=== PATIENT | female | born 1990 | race African-American/Black ===

== ENCOUNTER 2016-07-26 10:32 | Emergency (ER) | payer OTHER ==
[~2016-07-26] VITALS: Ht 162.6 cm; Wt 68.5 kg
[2016-07-26 10:32] VITALS: BP 134/65
[2016-07-26] MEDS ORDERED: ZOFR4TAB3 PO (11:58)
[2016-07-26] MEDS ORDERED: ACETAMINOPHEN 325 MG TAB PO ONE (12:00)
[2016-07-26] MEDS ORDERED: ONDANSETRON 4 MG ORAL DISINTEGRATING TAB (S0181) PO ONE (12:00)
== END 2016-07-26 12:06 | disposition home or self-care (01) ==
LOC: M ED 11:41
DX: J02.9 Acute pharyngitis, unspecified (principal)

== ENCOUNTER 2016-10-03 11:31 | Emergency (ER) | payer OTHER ==
[~2016-10-03] VITALS: Ht 162.6 cm; Wt 64.9 kg
[~2016-10-03 11:31] MED LIST: ZOFR4TAB3 PO
[2016-10-03 12:47] LABS: BASO % 0.3 % (0.0-1.0); EOS # 0.1 K/mm3 (0.0-0.50); EOS % 1.2 % (0.0-3.0); LARGE UNSTAINED CELL # 0.1 K/mm3 (0.0-0.4); LYMPH % 40.8 % (24.0-44.0); MEAN CORPUSCULAR HEMOGLOBIN 25.7 pg (27.0-33.0); MEAN CORPUSCULAR HGB CONC 31.3 g/dl (32.0-36.5); MEAN CORPUSCULAR VOLUME 82.3 fl (80.0-96.0); MONO # 0.3 K/mm3 (0.0-0.8); MONO % 5.9 % (0.0-5.0); NEUTROPHILS # 2.3 K/mm3 (1.8-7.7); NEUTROPHILS % 48.8 % (36.0-66.0); PLATELET COUNT, AUTOMATED 210 k/mm3 (150-450); RED CELL DISTRIBUTION WIDTH 13.6 % (11.5-14.5); WHITE BLOOD COUNT 4.7 K/mm3 (4.0-10.0)
[2016-10-03 14:12] VITALS: BP 156/70
== END 2016-10-03 14:15 | disposition home or self-care (01) ==
LOC: M ED 12:22
DX: O20.8 Other hemorrhage in early pregnancy (principal); Z90.89 Acquired absence of other organs; Z3A.01 Less than 8 weeks gestation of pregnancy

== ENCOUNTER 2016-11-18 07:03 | Emergency (ER) | payer OTHER ==
[~2016-11-18] VITALS: Ht 162.6 cm; Wt 69.0 kg
[2016-11-18] MEDS ORDERED: PRENCHW PO (07:12)
[2016-11-18] MEDS ORDERED: NS 1,000 ML IV ONE (07:45)
[2016-11-18] MEDS ORDERED: METOCLOPRAMIDE INJ 10MG/2ML VIAL (J2765) IV ONE (07:45)
[2016-11-18] MEDS ORDERED: diphenhydrAMINE INJ 50MG/ML VIAL (J1200) IV ONE (07:45)
[2016-11-18 08:26] LABS: BASO % 0.1 % (0.0-1.0); EOS % 0.3 % (0.0-3.0); LARGE UNSTAINED CELL # 0.1 K/mm3 (0.0-0.4); LARGE UNSTAINED CELL % 1.9 % (0.0-4.0); LYMPH # 1.5 K/mm3 (1.5-6.5); LYMPH % 24.3 % (24.0-44.0); MEAN CORPUSCULAR HEMOGLOBIN 26.1 pg (27.0-33.0); MEAN CORPUSCULAR HGB CONC 32.1 g/dl (32.0-36.5); MEAN CORPUSCULAR VOLUME 81.3 fl (80.0-96.0); MONO # 0.3 K/mm3 (0.0-0.8); MONO % 5.3 % (0.0-5.0); NEUTROPHILS # 3.9 K/mm3 (1.8-7.7); PLATELET COUNT, AUTOMATED 171 k/mm3 (150-450); RED CELL DISTRIBUTION WIDTH 13.6 % (11.5-14.5); WHITE BLOOD COUNT 5.8 K/mm3 (4.0-10.0)
[2016-11-18 09:15] LABS: ALBUMIN 3.2 GM/DL (3.2-5.2); ALBUMIN/GLOBULIN RATIO 0.76 (1.00-1.93); ALKALINE PHOSPHATASE 136 U/L (45-117); ALT/SGPT 24 U/L (12-78); AMYLASE 65 U/L (25-115); ANION GAP 9 MEQ/L (8-16); AST/SGOT 11 U/L (15-37); BILIRUBIN,DIRECT < 0.1 MG/DL (0.0-0.2); BILIRUBIN,TOTAL 0.3 MG/DL (0.2-1.0); BLOOD UREA NITROGEN 7 MG/DL (7-18); CALCIUM LEVEL 9.4 MG/DL (8.5-10.1); CARBON DIOXIDE LEVEL 24 MEQ/L (21-32); CHLORIDE LEVEL 101 MEQ/L (98-107); CREATININE FOR GFR 0.28 MG/DL (0.55-1.02); GLOMERULAR FILTRATION RATE > 60.0 (>60); GLUCOSE, FASTING 95 MG/DL (70-105); HCG, SERUM QUANTITATIVE 44218 MIU/ML; POTASSIUM SERUM 3.5 MEQ/L (3.5-5.1); SODIUM LEVEL 134 MEQ/L (136-145); TOTAL PROTEIN 7.4 GM/DL (6.4-8.2)
--- NOTE | 2016-11-18 09:23 | REP ---
First trimester obstetrical ultrasound, emergency room request for pelvic pain: There are no comparisons. The study is performed with transabdominal and Doppler imaging: The bladder is poorly distended. There is an intrauterine gestational sac with a pole. The heart rate is 169 beats per minute. The pole crown-rump length is 4.3 cm correspond to 11 weeks 1 day gestational age. The RICHARD is 06/08/2017. There is a yolk sac that is borderline enlarged measuring 5.1 mm. There is no subchorionic hematoma. The maternal adnexa and cul-de-sac are unremarkable. The Doppler resistive index of the intraparenchymal arteries in the right ovary is 0.59 indicating there is vascular flow in the right ovary. There is no ultrasound assessment of the left ovary for reasons known to this examiner. Signed by Hudson Calloway MD 11/18/2016 09:14 A
[2016-11-18] MEDS ORDERED: REGL10TA6 PO (09:52)
[2016-11-18 10:09] VITALS: BP 123/54
== END 2016-11-18 10:10 | disposition home or self-care (01) ==
LOC: M ED 07:03
DX: O99.89 Other specified diseases and conditions complicating pregnancy, childbirth and the puerperium (principal); E86.0 Dehydration; R10.84 Generalized abdominal pain; R11.2 Nausea with vomiting, unspecified; R19.7 Diarrhea, unspecified; Z3A.11 11 weeks gestation of pregnancy; Z79.899 Other long term (current) drug therapy
CPT/HCPCS: 76801; 80048; 80076; 81001; 82150; 83690; 84702; 85025; 87086; 96361; 96374; 96375; 99283; J1200; J2765

== ENCOUNTER 2016-12-14 17:09 | Emergency (ER) | payer OTHER ==
[~2016-12-14] VITALS: Ht 162.6 cm; Wt 65.0 kg
[~2016-12-14 17:09] MED LIST changes: +PRENCHW PO; +REGL10TA6 PO
[2016-12-14] MEDS ORDERED: VITA50TA43 PO (17:21)
[2016-12-14] MEDS ORDERED: UNIS25TA2 PO (17:21)
[2016-12-14 18:39] LABS: MEAN CORPUSCULAR HEMOGLOBIN 26.4 pg (27.0-33.0); MEAN CORPUSCULAR HGB CONC 32.2 g/dl (32.0-36.5); MEAN CORPUSCULAR VOLUME 82.2 fl (80.0-96.0); RED CELL DISTRIBUTION WIDTH 13.6 % (11.5-14.5); WHITE BLOOD COUNT 7.9 K/mm3 (4.0-10.0)
[2016-12-14] MEDS ORDERED: ONDANSETRON 4 MG ORAL DISINTEGRATING TAB (S0181) PO ONE (18:45)
--- NOTE | 2016-12-14 20:40 | REPUSA ---
CLINICAL HISTORY: Abdominal pain. TECHNIQUE: Realtime sonographic images were obtained in multiple projections. COMMENTS: There is a single intrauterine gestation, variable position presentation. The biparietal diameter measures 3.1 cm. This corresponds to a gestational age of 15 weeks 5 days. The abdominal circumference and femur length measure 8.7 cm and 1.8 cm, respectively, and are relati vely proportionate to the BPD. The HC-AC ratio is normal. The composite age is 15 weeks and 2 days. Estimated weight based on BPD and AC is 116 grams. heart motion was observed. The heart rate is 160 beats per minute. The placenta is left lateral free of the cervical os. The amniotic fluid volume is normal. The cervical length is 3.7 cm. IMPRESSION: 1. Single, live, intrauterine gestation with a composite gestational age of 15 weeks and 2 da ys. 2. Estimated date of delivery is 06/05/2017
[2016-12-14] MEDS ORDERED: METR1GEL7 PV (21:22)
[2016-12-14 21:30] VITALS: BP 135/77
== END 2016-12-14 21:31 | disposition home or self-care (01) ==
LOC: M ED 17:09
DX: O23.92 Unspecified genitourinary tract infection in pregnancy, second trimester (principal); Z3A.15 15 weeks gestation of pregnancy; Z79.899 Other long term (current) drug therapy

== ENCOUNTER 2016-12-16 10:10 | Emergency (ER) | payer OTHER ==
[~2016-12-16] VITALS: Ht 162.6 cm; Wt 62.6 kg
[~2016-12-16 10:10] MED LIST changes: +METR1GEL7 PV; +UNIS25TA2 PO; +VITA50TA43 PO
[2016-12-16 10:11] VITALS: BP 128/70
== END 2016-12-16 12:21 | disposition left against medical advice (07) ==
LOC: M ED 10:10
DX: O21.9 Vomiting of pregnancy, unspecified (principal); Z53.29 Procedure and treatment not carried out because of patient's decision for other reasons

== ENCOUNTER 2017-01-31 14:45 | Emergency (ER) | payer OTHER ==
[~2017-01-31] VITALS: Ht 162.6 cm; Wt 64.1 kg
[2017-01-31] MEDS ORDERED: FAMOTIDINE 20 MG TAB PO ONE (15:45)
[2017-01-31] MEDS ORDERED: NS 1,000 ML IV ONE (15:45)
--- NOTE | 2017-01-31 16:10 | REP ---
Portable chest: Single view. History: Central and right chest pain. patient. Triple abdominal healing. Comparison study: No comparison study. Findings: The lungs are well inflated and clear. Pleural angles are sharp. Heart is not enlarged. Pulmonary vasculature is not increased. No bony abnormality is seen. Impression: Negative portable chest. Signed by Cisco Gibbs MD 01/31/2017 04:02 P
[2017-01-31 16:18] LABS: BASO % 0.1 % (0.0-1.0); EOS # 0.1 10^3/uL (0.0-0.50); EOS % 0.5 % (0.0-3.0); IMMATURE GRANULOCYTE % 0.4 % (0-0); LYMPH # 2.4 10^3/uL (1.5-6.5); LYMPH % 20.6 % (24.0-44.0); MEAN CORPUSCULAR HEMOGLOBIN 26.4 pg (27.0-33.0); MEAN CORPUSCULAR HGB CONC 32.1 g/dl (32.0-36.5); MEAN CORPUSCULAR VOLUME 82.3 fl (80.0-96.0); MONO # 0.7 10^3/uL (0.0-0.8); MONO % 6.2 % (0.0-5.0); NEUTROPHILS # 8.5 10^3/uL (1.8-7.7); NEUTROPHILS % 72.2 % (36.0-66.0); PLATELET COUNT, AUTOMATED 225 10^3/uL (150-450); RED CELL DISTRIBUTION WIDTH 14.3 % (11.5-14.5); WHITE BLOOD COUNT 11.7 10^3/uL (4.0-10.0)
[2017-01-31 16:28] LABS: INR 0.93
[2017-01-31 16:43] LABS: ANION GAP 8 MEQ/L (8-16); BLOOD UREA NITROGEN 5 MG/DL (7-18); CALCIUM LEVEL 8.8 MG/DL (8.5-10.1); CARBON DIOXIDE LEVEL 24 MEQ/L (21-32); CHLORIDE LEVEL 106 MEQ/L (98-107); CREATININE FOR GFR 0.22 MG/DL (0.55-1.02); GLOMERULAR FILTRATION RATE > 60.0 (>60); GLUCOSE, FASTING 78 MG/DL (70-105); POTASSIUM SERUM 3.9 MEQ/L (3.5-5.1); SODIUM LEVEL 138 MEQ/L (136-145)
--- NOTE | 2017-01-31 16:55 | REP ---
Duplex extremity venous ultrasound: Bilateral lower extremities. History: 90 weeks gestation. Shortness of breath. Question DVT. Findings: The deep veins are anechoic and fully compressible from the groin to the popliteal fossa in the right and left lower extremity. Color flow imaging is homogeneous. Spectral Doppler interrogation demonstrates intact respiratory variation in flow and normal manual augmentation of flow. There is no evidence of deep vein thrombosis. Impression: Negative bilateral lower extremity duplex venous ultrasound. No evidence of deep vein thrombosis. Signed by Cisco Gibbs MD 01/31/2017 04:46 P
[2017-01-31] MEDS ORDERED: ISOVUE-370 76% 100ML VIAL (Q9967) As Ordered ONE (18:12)
--- NOTE | 2017-01-31 18:50 | REPUSA ---
CT angiogram of the chest Clinical statement: Chest pain and shortness of breath. Technique: Multiple axial CT images were obtained from the thoracic inlet through the upper abdomen a fter a bolus administration of nonionic intravenous contrast. Coronal and sagittal reconstructions we re also obtained. No comparison is available. Findings: The pulmonary arteries are well-opacified with contrast, with no intraluminal filling defec ts to suggest embolism. The thoracic aorta is unremarkable. Thyroid gland is within normal limits. Th ere is no thoracic lymphadenopathy. There are no pericardial or pleural effusions. The lungs are hamilton r. Limited imaging of the upper abdomen is unremarkable. There are no suspicious osseous lesions. Impression: Unremarkable CT examination of the chest. No evidence of pulmonary embolism.
[2017-01-31 19:28] VITALS: BP 139/74
--- NOTE | 2017-02-01 05:43 | ECGEPIP ---
Stationary ECG Study [facility] - ED Test Date: 2017-01-31 Pat Name: ELENI SHEPHERD Department: Room: - Gender: F Counter Professional: michelle : 1990 Requested By: LIDA PAREDES PA-C. Order Number: [id number] Reading MD: Dave Conte Measurements Intervals [place] Rate: 76 P: -27 VA: 146 QRS: -20 QRSD: 97 T: 136 QT: 382 QTc: 430 Interpretive Statements SINUS RHYTHM LOW VOLTAGE NO PRIORS Electronically Signed On 02-01-2017 5:43:21 EDT by Dave Conte
--- NOTE | 2017-02-03 07:44 | ECGEPIP ---
Stationary ECG Study [facility] Test Date: 2017-01-31 Pat Name: ELENI SHEPHERD Department: Room: - Gender: F Medical Illustrator: michelle : 1990 Requested By: Dave Eng Order Number: [id number] Reading MD: Michelle Diaz Measurements Intervals [place] Rate: 68 P: 20 HI: 151 QRS: 33 QRSD: 98 T: 37 QT: 403 QTc: 431 Interpretive Statements SINUS RHYTHM IMPROVED VOLTAGE LIMB LEADS C/W 01/31/17 Electronically Signed On 02-03-2017 7:43:59 EDT by Michelle Diaz
== END 2017-01-31 19:28 | disposition home or self-care (01) ==
LOC: M ED 14:45
DX: O99.89 Other specified diseases and conditions complicating pregnancy, childbirth and the puerperium (principal); R07.89 Other chest pain; O26.892 Other specified pregnancy related conditions, second trimester; Z87.891 Personal history of nicotine dependence; Z79.899 Other long term (current) drug therapy; Z3A.00 Weeks of gestation of pregnancy not specified
CPT/HCPCS: 36415; 71010; 71275; 80048; 85025; 85610; 85730; 93005; 93970; 96360; 96361; 99284; Q9967

== ENCOUNTER 2017-04-29 22:04 | Outpatient (CLI) | payer OTHER | END 2017-04-29 23:15 | disposition home or self-care (01) | LOC: M LDO 22:04 | DX: O36.8190 Decreased fetal movements, unspecified trimester, not applicable or unspecified (principal); Z3A.34 34 weeks gestation of pregnancy; Z79.899 Other long term (current) drug therapy | CPT/HCPCS: 59025 ==

== ENCOUNTER 2017-05-24 20:02 | Outpatient (CLI) | payer OTHER ==
[2017-05-24] MEDS: ACETAMINOPHEN 325 MG TAB PO (22:00)
[2017-05-25 00:01] LABS: AMPHETAMINES URINE REFLEX NEGATIVE (NEGATIVE); BARBITURATES URINE REFLEX NEGATIVE (NEGATIVE); BENZODIAZEPINES URINE REFLEX NEGATIVE (NEGATIVE); CANNABINOIDS URINE REFLEX NEGATIVE (NEGATIVE); COCAINE METABOLITE URINE REFLE NEGATIVE (NEGATIVE); METHADONE URINE REFLEX NEGATIVE (NEGATIVE); OPIATES URINE REFLEX NEGATIVE (NEGATIVE); PHENCYCLIDINE URINE REFLEX NEGATIVE (NEGATIVE)
== END 2017-05-24 23:25 | disposition home or self-care (01) ==
LOC: M LDO 20:02
DX: O47.03 False labor before 37 completed weeks of gestation, third trimester (principal); Z3A.37 37 weeks gestation of pregnancy
CPT/HCPCS: 76815

== ENCOUNTER 2017-05-25 07:57 | Inpatient (IN) | payer OTHER ==
[2017-05-25] MEDS ORDERED: MORPHINE 2 MG/ML 1ML SYRINGE As Ordered (08:02)
[2017-05-25] MEDS ORDERED: OXYTOCIN 30 UNITS IN 0.9% NaCl 500ML IV BAG (J2590) As Ordered (08:13)
[2017-05-25] MEDS: MORPHINE 2 MG/ML 1ML SYRINGE IV ×2 (08:14→22:44)
[2017-05-25] MEDS: OXYTOCIN DRIP 30 UNITS in APPROPRIATE DILUENT 1 EA IV (08:15)
[2017-05-25] MEDS ORDERED: PROMETHAZINE 25 MG TAB PO (08:30)
[2017-05-25] MEDS ORDERED: MOM 30ML SUSPENSION UDC PO (08:30)
[2017-05-25] MEDS ORDERED: DIBUCAINE 1% OINTMENT 30GM TOP (08:30)
[2017-05-25] MEDS ORDERED: MEASLES,MUMPS,RUBELLA VACCINE INJ (MMR-II) (90707) SC (08:30)
[2017-05-25] MEDS ORDERED: RHOGAM 300 MCG (1500 IU) INJ (J2790) IM (08:30)
[2017-05-25] MEDS ORDERED: ONDANSETRON 4MG/2ML VIAL (J2405) IV (08:30)
[2017-05-25] MEDS ORDERED: DOCUSATE SODIUM 100 MG CAP PO (08:30)
[2017-05-25] MEDS ORDERED: METHYLERGONOVINE MALEATE 0.2 MG TAB PO (08:30)
[2017-05-25] MEDS: KETOROLAC 30 MG/ML VIAL (J1885) IV (08:49)
[2017-05-25] MEDS: PRENATAL VITAMINS CHEWABLE TABLET PO (09:00)
[2017-05-25] MEDS: ACETAMINOPHEN 500 MG TAB PO ×2 (14:23→21:24)
[2017-05-25] MEDS: IBUPROFEN 800 MG TAB PO (17:07)
[2017-05-26] MEDS: PRENATAL VITAMINS CHEWABLE TABLET PO (09:52)
== END 2017-05-26 18:00 | disposition home or self-care (01) | DRG 776 ==
LOC: M LDI 07:57 → M OBS 15:40
PROVIDERS: Student in an Organized Health Care Education/Training Program
DX: Z39.0 Encounter for care and examination of mother immediately after delivery (principal)

== ENCOUNTER → 2017-12-03 | Outpatient (REF) | payer OTHER | LOC: M SFHCLERA 10:23 | DX: J02.9 Acute pharyngitis, unspecified (principal) ==

== ENCOUNTER → 2017-12-08 | Outpatient (CLI) | payer OTHER | LOC: M RAD 16:25 | DX: E05.90 Thyrotoxicosis, unspecified without thyrotoxic crisis or storm (principal); E04.9 Nontoxic goiter, unspecified | CPT/HCPCS: 76536 ==